=== PATIENT | female | born 1995 | race Caucasian/White ===

== ENCOUNTER 2019-05-21 08:15 | Emergency (ER) | payer OTHER ==
[2019-05-21 08:21] VITALS: BP 107/65; PULSE 103; TEMP 98.7; BMI 34.2
--- NOTE | 2019-05-21 09:28 | PDOC ---
History of Present Illness - General Chief Complaint: [facility] [place] Stated Complaint: ABDOMINAL PAIN 16 WEEKS Time Seen by Provider: 05/21/19 08:28 History Source: Patient Exam Limitations: No Limitations - History of Present Illness Travel History: No Initial Comments: 05/21/19 09:28 23-year-old female presents to ED with complaints of short mid suprapubic cramping since this past Tuesday. Patient states is currently 17 weeks patient states was told she has a fibroid when she had an ultrasound done at 12 weeks by her [employer]. Patient has no urinary complaints, vaginal discharge or vaginal bleeding complaints patient denies fever, chills or nausea Timing/Duration: reports: constant Quality: reports: mild, cramping, sharpness Abdominal Pain Onset Location: reports: suprapubic Pain Radiation: reports: no radiation Activities at Onset: reports: none Aggravating Factors: improves with: None Alleviating Factors: improves with: None Past History - Travel Traveled outside of the country in the last 30 days: No Close contact w/someone who was outside of country & ill: No - Past Medical History Allergies/Adverse Reactions: Allergies Allergy/AdvReac Type Severity Reaction Status Date / Time No Known Allergies Allergy Verified 05/21/19 08:19 Home Medications: Ambulatory Orders NK [No Known Home Medication] 04/01/14 - Psycho Social/Smoking Cessation Hx Smoking History: Never smoked Hx Alcohol Use: No Drug/Substance Use Hx: No Patient Lives Alone: No Lives with/in: spouse/SO Review of Systems - Review of Systems Able to Perform ROS?: Yes Constitutional: No: Symptoms Reported HEENTM: No: Symptoms Reported Respiratory: No: Symptoms reported Cardiac (ROS): No: Symptoms Reported ABD/GI: Yes: Abdominal cramping : No: Symptoms Reported Musculoskeletal: No: Symptoms Reported Integumentary: No: Symptoms Reported Neurological: No: Symptoms reported Hematologic/Lymphatic: No: Symptoms Reported *Physical Exam - Vital Signs Last Vital Signs Temp Pulse Resp BP Pulse Ox 98.7 F 103 H 16 107/65 98 05/21/19 08:19 05/21/19 08:19 05/21/19 08:19 05/21/19 08:19 05/21/19 08:19 - Physical Exam General Appearance: Yes: Nourished, Appropriately Dressed. No: Apparent Distress HEENT: negative: Pale Conjunctivae Neck: positive: Normal Thyroid Respiratory/Chest: positive: Lungs Clear, Normal Breath Sounds. negative: Respiratory Distress, Accessory Muscle Use Cardiovascular: positive: Regular Rhythm, Regular Rate (83 on portable monitor) . negative: Murmur Female Pelvic Exam: positive: normal external exam. negative: vaginal bleeding Gastrointestinal/Abdominal: positive: Soft, Tenderness (Mild mid suprapubic) Extremity: positive: Normal Inspection Integumentary: positive: Normal Color, Warm, Moist Neurologic: positive: Motor Strength 5/5 (Ambulatory) ED Treatment Course - RADIOLOGY Radiology Studies Ordered: Category Date Time Status US(SINGLE) [US] Stat Ultrasound 05/21/19 08:40 Ordered Medical Decision Making - Medical Decision Making 05/21/19 09:36 Chief complaint: Lower abdominal cramping since Tuesday currently 17 weeks . No other complaints. Patient with history of fibroids Exam: Mid suprapubic tenderness Plan: Urinalysis urine culture and ultrasound ordered 05/21/19 09:57 Ultrasound shows 16 weeks for 5 days with a heart rate of 156 bpm. Fetus in breech position currently. Patient also with UTI. Patient be treated with Keflex and culture has been sent Laboratory Tests 05/21/19 08:33 Ur Leukocyte Esterase 3+ H Urine WBC (Auto) 47 Discharge - Discharge Information Problems reviewed: Yes Clinical Impression/Diagnosis: UTI (urinary tract infection) Condition: Good Disposition: HOME - Admission No - Follow up/Referral - Patient Discharge Instructions Patient Printed Discharge Instructions: DI for Urinary Tract Infection (UTI) Additional Instructions: Please take antibiotics as prescribed. May take Tylenol if needed for discomfort. Follow-up with your [employer] and if symptoms worsen prior to follow-up please return to the ED - Post Discharge Activity
[2019-05-21 09:46] LABS: EPI CELLS 6.6 /HPF (0-5/HPF); HYALINE CASTS 24 /lpf (0-8); URINE APPEARANCE CLOUDY; URINE BACTERIA 704.1 /hpf (NEGATIVE); URINE BILIRUBIN NEGATIVE (NEGATIVE); URINE COLOR YELLOW; URINE GLUCOSE (UA) NEGATIVE (NEGATIVE); URINE KETONE 1+ (NEGATIVE); URINE LEUK ESTERASE 3+ (NEGATIVE); URINE NITRITE NEGATIVE (NEGATIVE); URINE PROTEIN NEGATIVE (NEGATIVE); URINE RBC 1 /hpf (0-4); URINE UROBILINOGEN 0.2 mg/dL (0.2-1.0); URINE WBC 47 /hpf (0-5)
== END 2019-05-21 10:17 | disposition home or self-care (01) ==
LOC: JER 08:15
DX: O26.892 Other specified pregnancy related conditions, second trimester (principal); O23.42 Unspecified infection of urinary tract in pregnancy, second trimester; Z3A.16 16 weeks gestation of pregnancy
CPT/HCPCS: 76801-TC; 81003; 87086; 99282-25

== ENCOUNTER 2021-07-25 11:58 | Emergency (ER) | payer OTHER | END 2021-07-25 12:23 | disposition home or self-care (01) | LOC: JVIRT 11:58 | DX: U07.1 COVID-19 (principal); J02.9 Acute pharyngitis, unspecified | CPT/HCPCS: 87070; C9803; Q3014-GT; U0003; U0005 ==

== ENCOUNTER 2021-11-23 08:30 | Emergency (ER) | payer OTHER ==
[2021-11-23 08:56] VITALS: BP 133/84; PULSE 86; TEMP 97.9; BMI 32.9
[2021-11-23] MEDS ORDERED: LIDOCAINE 5% TOPICAL PATCH TP ONE (09:26)
[2021-11-23] MEDS ORDERED: KETOROLAC TROMETHAMINE 30 MG/1 ML VIAL IM ONE (09:26)
[2021-11-23] MEDS ORDERED: METHOCARBAMOL 500 MG TABLET PO ONE (09:26)
[2021-11-23] MEDS ORDERED: LIDOCAINE 5% TOPICAL PATCH ONE (09:37)
[2021-11-23] MEDS ORDERED: METHOCARBAMOL 500 MG TABLET ONE (09:38)
[2021-11-23] MEDS ORDERED: KETOROLAC TROMETHAMINE 30 MG/1 ML VIAL ONE (11:39)
[2021-11-23] MEDS ORDERED: LIDOCAINE PATCH REMOVAL MC ONE (22:00)
== END 2021-11-23 11:46 | disposition home or self-care (01) ==
LOC: JERFT 08:30 → JER 08:30 → JERFT 11:46
PROC: 3E0233Z Introduction of Anti-inflammatory into Muscle, Percutaneous Approach (ICD-10-PCS; principal; 2021-11-23)
DX: M53.3 Sacrococcygeal disorders, not elsewhere classified (principal)
CPT/HCPCS: 84703; 99284-25

== ENCOUNTER 2022-05-05 08:16 | Emergency (ER) | payer OTHER ==
[2022-05-05] MEDS ORDERED: DEXAMETHASONE LIQUID 0.5 MG/5 ML PO ONE (08:26)
[2022-05-05 08:51] VITALS: BP 117/80; PULSE 61; RESP 18; TEMP 98.1; BMI 33.5
[2022-05-05] MEDS ORDERED: DEXAMETHASONE SOD PHOSPHATE 10 MG/1 ML VIAL ONE (08:53)
[2022-05-05 10:17] LABS: THROAT:GRP A STREP NOT DETECTED (NOTDETECTED)
== END 2022-05-05 11:03 | disposition home or self-care (01) ==
LOC: JERFT 08:16
DX: J06.9 Acute upper respiratory infection, unspecified (principal)
CPT/HCPCS: 0241U-QW; 87651; 99283-25

== ENCOUNTER 2022-07-22 08:07 | Emergency (ER) | payer OTHER ==
[2022-07-22 08:13] VITALS: BP 121/81; PULSE 90; RESP 18; TEMP 97.8; BMI 34.5
[2022-07-22] MEDS ORDERED: BACITRACIN 0.9 GM PACKET ONE ×2 (08:28→08:35)
[2022-07-22] MEDS ORDERED: BACITRACIN 15 GM TUBE TOPICAL OINTMENT TP ONE (08:29)
== END 2022-07-22 08:40 | disposition home or self-care (01) ==
LOC: JERFT 08:07
DX: H60.501 Unspecified acute noninfective otitis externa, right ear (principal); L98.8 Other specified disorders of the skin and subcutaneous tissue
CPT/HCPCS: 99283-25

== ENCOUNTER 2023-08-20 20:43 | Emergency (ER) | payer OTHER ==
[2023-08-20 20:53] VITALS: BP 122/76; PULSE 85; RESP 18; TEMP 98.6; BMI 37.8
[2023-08-20 21:46] LABS: EOS % 0.9 % (0-4.5); HEMATOCRIT 33.7 % (32.4-45.2); HEMOGLOBIN 11.4 GM/dL (10.7-15.3); LYMPH % 24.7 % (8-40); MCH 26.5 pg (25.7-33.7); MCHC 33.8 g/dl (32.0-36.0); MEAN CELL VOLUME 78.5 fl (80-96); MEAN PLT VOLUME 8.8 fl (7.5-11.1); MONO % 6.2 % (3.8-10.2); NEUT % 67.2 % (42.8-82.8); PLATELET COUNT 256 10^3/uL (134-434); RBC 4.29 M/mm3 (3.60-5.2); RDW 15.6 % (11.6-15.6); WHITE BLOOD COUNT 7.7 K/mm3 (4.0-10.0)
[2023-08-20 21:54] LABS: EPI CELLS >36 /uL (0-25.1); HYALINE CASTS 2 /uL (0-3.1); URINE APPEARANCE CLOUDY; URINE BACTERIA 210 /uL (0-1359); URINE BILIRUBIN NEGATIVE (NEGATIVE); URINE COLOR YELLOW; URINE GLUCOSE (UA) NEGATIVE (NEGATIVE); URINE KETONE TRACE (NEGATIVE); URINE LEUK ESTERASE TRACE (NEGATIVE); URINE NITRITE NEGATIVE (NEGATIVE); URINE PROTEIN TRACE (NEGATIVE); URINE WBC 56 /uL (0-25.8)
[2023-08-20 22:42] LABS: YEAST FEW (NEGATIVE)
[2023-08-20 22:55] LABS: POTASSIUM 3.9 mmol/L (3.5-5.1)
[2023-08-20 22:57] LABS: CALCIUM 8.7 mg/dL (8.5-10.1)
[2023-08-20 22:58] LABS: ALBUMIN 3.1 g/dl (3.4-5.0); BLOOD UREA NITROGEN 10.2 mg/dL (7-18)
[2023-08-20 23:01] LABS: CREATININE 0.6 mg/dL (0.55-1.3)
[2023-08-20 23:02] LABS: BILIRUBIN,TOTAL 0.2 mg/dL (0.2-1); TOT PROT 7.3 g/dl (6.4-8.2)
== END 2023-08-21 00:15 | disposition home or self-care (01) ==
LOC: JER 20:43
DX: O26.891 Other specified pregnancy related conditions, first trimester (principal); R00.2 Palpitations; Z3A.10 10 weeks gestation of pregnancy
CPT/HCPCS: 36415; 76815; 80053; 81003; 84702; 85025; 85027; 85379; 87077; 87086; 93005; 93010; 99285-25

== ENCOUNTER 2024-03-14 21:15 | Inpatient (IN) | payer OTHER ==
[2024-03-14 22:47] VITALS: BMI 39.1
[2024-03-14] MEDS: ELECTROLYTE-148 SOLN 1,000 ML IV SCH (23:45)
[2024-03-15 00:10] LABS: BASO % 0.2 % (0-2.0); HEMATOCRIT 31.4 % (32.4-45.2); HEMOGLOBIN 10.5 GM/dL (10.7-15.3); LYMPH % 18.6 % (8-40); MCH 26.9 pg (25.7-33.7); MCHC 33.6 g/dl (32.0-36.0); MEAN PLT VOLUME 7.6 fl (7.5-11.1); MONO % 6.1 % (3.8-10.2); NEUT % 74.1 % (42.8-82.8); PLATELET COUNT 208 10^3/uL (134-434); RBC 3.92 M/mm3 (3.60-5.2); RDW 19.9 % (11.6-15.6); WHITE BLOOD COUNT 8.9 K/mm3 (4.0-10.0)
[2024-03-15 00:16] LABS: INR 1.01 (0.83-1.09); PROTHROMBIN TIME (PATIENT) 11.6 SEC (9.7-13.0)
[2024-03-15 00:19] LABS: ACTIVATED PTT 30.3 SECONDS (25.2-36.5)
[2024-03-15 00:28] LABS: POTASSIUM 3.7 mmol/L (3.5-5.1)
[2024-03-15 00:29] LABS: CALCIUM 8.8 mg/dL (8.5-10.1)
[2024-03-15 00:30] LABS: BLOOD UREA NITROGEN 10.8 mg/dL (7-18)
[2024-03-15 00:33] LABS: CREATININE 0.5 mg/dL (0.55-1.3)
[2024-03-15] MEDS: OXYTOCIN 30 UNITS in 0.9% NS 30 UNIT/500 ML INFUS.BAG IVPB SCH (01:10)
[2024-03-15] MEDS ORDERED: OXYTOCIN 30 UNITS in 0.9% NS 30 UNIT/500 ML INFUS.BAG IVPB ONE (01:12)
[2024-03-15] MEDS ORDERED: FENTANYL/BUPIVACAINE/NS/PF - PCEA - 50 ML DISP.SYRIN EP ONE ×3 (03:06→11:47)
[2024-03-15] MEDS: FENTANYL/BUPIVACAINE/NS/PF - PCEA - 50 ML DISP.SYRIN EP SCH (04:05)
[2024-03-15] MEDS ORDERED: OXYTOCIN 20 UNITS in 0.9% NS 20 UNIT/1,000 ML INFUS.BAG IV ONE ×2 (07:37→14:57)
[2024-03-15] MEDS: CITRIC ACID/SODIUM CITRATE 30 ML UNIT-DOSE CUP PO ONE (12:40)
[2024-03-15] MEDS ORDERED: LIDO 2%/EPI 1:200000 PRESRVFRE (20 ML SDVIAL) ONE (12:48)
[2024-03-15] MEDS ORDERED: DEXAMETHASONE SOD PHOSPHATE 4 MG/1 ML VIAL ONE (12:51)
[2024-03-15] MEDS ORDERED: ONDANSETRON 4 MG/2 ML VIAL ONE (12:51)
[2024-03-15] MEDS ORDERED: PHENYLEPHRINE HCL 10 MG/1 ML SINGLE DOSE VIAL ONE (12:51)
[2024-03-15] MEDS ORDERED: METOCLOPRAMIDE HCL INJECTION 10 MG/2 ML VIAL ONE (12:51)
[2024-03-15] MEDS ORDERED: FENTANYL CITRATE/PF 50 MCG/ML VIAL ONE (12:51)
[2024-03-15] MEDS ORDERED: ceFAZolin SODIUM 1 GM VIAL ONE (12:51)
[2024-03-15] MEDS ORDERED: OXYTOCIN 10 UNITS/ML VIAL ONE (13:14)
[2024-03-15] MEDS ORDERED: TRANEXAMIC ACID 1000 MG/10 ML VIAL ONE (13:20)
[2024-03-15] MEDS ORDERED: KETOROLAC TROMETHAMINE 30 MG/1 ML VIAL ONE (13:44)
[2024-03-15] MEDS ORDERED: METHYLERGONOVINE MALEATE 0.2 MG/1 ML AMP IM PRN (13:50)
[2024-03-15] MEDS: OXYTOCIN 20 UNITS in 0.9% NS 20 UNIT/1,000 ML INFUS.BAG IV SCH (14:30)
[2024-03-15] MEDS ORDERED: ONDANSETRON 4 MG/2 ML VIAL IVPUSH PRN (14:38)
[2024-03-15 15:17] LABS: CORD BASE EXCESS -2.6 mmol/L (0-2); CORD HCO3 24.5 mmHg (20-29); CORD PCO2 51.3 mmHg (30-78); CORD pH 7.297 (7.14-7.44)
[2024-03-15 15:19] LABS: CORD HCO3 23.2 mmHg (20-29); CORD PCO2 59.7 mmHg (30-78); CORD pH 7.208 (7.14-7.44)
[2024-03-15] MEDS: CEFAZOLIN SODIUM 2 GM in DEXTROSE 5%-WATER 100 ML IVPB SCH (23:32)
[2024-03-15] MEDS: morphine SULFATE/PF 1 MG/2 ML (2cc Syringe - QUVA) EP ONE (23:32)
[2024-03-16] MEDS: IBUPROFEN 800 MG/8 ML IJ IVPB PRN (00:10)
[2024-03-16] MEDS: ACETAMINOPHEN 325 MG TABLET (FP) PO PRN (05:46)
[2024-03-16 09:40] LABS: BASO % 0.1 % (0-2.0); EOS % 0.5 % (0-4.5); HEMATOCRIT 19.8 % (32.4-45.2); LYMPH % 9.6 % (8-40); MCH 27.1 pg (25.7-33.7); MCHC 32.9 g/dl (32.0-36.0); MEAN CELL VOLUME 82.3 fl (80-96); MONO % 4.3 % (3.8-10.2); NEUT % 85.5 % (42.8-82.8); PLATELET COUNT 129 10^3/uL (134-434); RDW 19.5 % (11.6-15.6); WHITE BLOOD COUNT 9.9 K/mm3 (4.0-10.0)
[2024-03-16 09:48] LABS: HEMOGLOBIN 6.5 GM/dL (10.7-15.3)
[2024-03-16] MEDS: ENOXAPARIN NA (PORCINE) 40 MG/0.4 ML DISP.SYRIN SQ SCH (10:06)
[2024-03-16 10:08] LABS: HEMATOCRIT 24.7 % (32.4-45.2); HEMOGLOBIN 8.1 GM/dL (10.7-15.3); MCH 26.7 pg (25.7-33.7); MCHC 32.8 g/dl (32.0-36.0); MEAN CELL VOLUME 81.4 fl (80-96); MEAN PLT VOLUME 7.4 fl (7.5-11.1); PLATELET COUNT 170 10^3/uL (134-434); RBC 3.04 M/mm3 (3.60-5.2); RDW 19.6 % (11.6-15.6); WHITE BLOOD COUNT 12.8 K/mm3 (4.0-10.0)
[2024-03-16] MEDS ORDERED: BISACODYL 10 MG SUPP.RECT RC PRN (13:50)
[2024-03-16] MEDS: IBUPROFEN 600 MG TABLET (FP) PO PRN (22:03)
[2024-03-16] MEDS: SIMETHICONE 80 MG TAB.CHEW (FP) PO PRN (22:03)
[2024-03-16] MEDS: oxyCODONE HCL 5 MG TABLET PO PRN (23:39)
[2024-03-17] MEDS: oxyCODONE HCL 5 MG TABLET PO PRN (05:41)
[2024-03-17 07:50] LABS: BASO % 0.1 % (0-2.0); EOS % 1.3 % (0-4.5); HEMATOCRIT 23.5 % (32.4-45.2); HEMOGLOBIN 7.9 GM/dL (10.7-15.3); LYMPH % 21.3 % (8-40); MCH 27.4 pg (25.7-33.7); MCHC 33.5 g/dl (32.0-36.0); MEAN PLT VOLUME 7.8 fl (7.5-11.1); MONO % 5.3 % (3.8-10.2); PLATELET COUNT 183 10^3/uL (134-434); RBC 2.87 M/mm3 (3.60-5.2); RDW 19.6 % (11.6-15.6); WHITE BLOOD COUNT 8.7 K/mm3 (4.0-10.0)
[2024-03-17 17:26] VITALS: RESP 18
[2024-03-17] MEDS: CEFAZOLIN 1 GM in DEXTROSE 5%-WATER - 50 ML IVPB SCH (18:16)
[2024-03-17] MEDS: HYDROCORTISONE 2.5% TOPICAL CREAM 30 GM TUBE TP PRN (22:09)
[2024-03-18 07:50] LABS: BASO % 0.4 % (0-2.0); EOS % 1.8 % (0-4.5); HEMATOCRIT 27.2 % (32.4-45.2); HEMOGLOBIN 9.2 GM/dL (10.7-15.3); LYMPH % 21.2 % (8-40); MCH 27.2 pg (25.7-33.7); MCHC 33.8 g/dl (32.0-36.0); MEAN CELL VOLUME 80.7 fl (80-96); MEAN PLT VOLUME 7.6 fl (7.5-11.1); MONO % 4.5 % (3.8-10.2); NEUT % 72.1 % (42.8-82.8); PLATELET COUNT 214 10^3/uL (134-434); RBC 3.37 M/mm3 (3.60-5.2); RDW 19.3 % (11.6-15.6); WHITE BLOOD COUNT 8.6 K/mm3 (4.0-10.0)
[2024-03-18 08:55] VITALS: BP 98/62; PULSE 99; TEMP 99
== END 2024-03-18 10:00 | disposition home or self-care (01) | DRG 788 ==
LOC: JLDR 21:15 → J3W 03-15 16:59
PROVIDERS: ADMIT Obstetrics & Gynecology; ATTEND Obstetrics & Gynecology
PROC: 10D00Z1 Extraction of Products of Conception, Low, Open Approach (ICD-10-PCS; principal; 2024-03-15)
PROC: 10D00Z1 Extraction of Products of Conception, Low, Open Approach (ICD-10-PCS; 2024-03-15)
DX: O62.0 Primary inadequate contractions (principal); O32.4XX0 Maternal care for high head at term, not applicable or unspecified; O32.6XX0 Maternal care for compound presentation, not applicable or unspecified; O69.81X0 Labor and delivery complicated by cord around neck, without compression, not applicable or unspecified; Z3A.39 39 weeks gestation of pregnancy; Z37.0 Single live birth
CPT/HCPCS: 36415; 36430; 36600; 80048; 82803; 85025; 85027; 85610; 85730; 86780; 86850; 86900; 86901; 86922; 88307-TC; 94010; P9058